=== PATIENT | female | born 1950 | race Caucasian/White ===

== ENCOUNTER 2018-09-04 07:09 | Observation (INO) | payer MEDICARE, OTHER ==
[~2018-09-04] VITALS: Ht 162.6 cm; Wt 91.4 kg
[2018-09-04 08:09] LABS: COLLECTION METHOD CLEAN CATCH
[2018-09-04 08:13] LABS: BASO % 0.4 % (0.0-2.0); EOS % 0.1 % (0-4.0); GRAN # 6.9 (1.4-6.5); GRAN % 73.2 % (42.2-75.2); HEMATOCRIT 39.1 % (37.0-47.0); HEMOGLOBIN 12.6 g/dl (12.5-16.0); LYMPH # 1.9 (1.2-3.4); LYMPH % 20.2 % (20.0-51.0); MEAN CELL VOLUME 81 fl (80.0-100.0); MEAN CORPUSCULAR HEMOGLOBIN 26 pg (27.0-31.0); MEAN CORPUSCULAR HGB CONC 32 g/dl (33.0-37.0); MONO # 0.6 (0.1-0.6); MONO % 5.9 % (1.7-9.3); PLATELET COUNT 266 K/mm3 (130-400); RED BLOOD COUNT 4.83 M/mm3 (4.10-5.30)
[2018-09-04 08:17] LABS: ARTERIAL BLD GAS O2 SATURATION 93.4 % (92-100); ARTERIAL BLD GAS TCO2 CT 26.3; ARTERIAL BLOOD GAS BASE EXCESS 1.3 (-2-2); ARTERIAL BLOOD GAS HCO3 25.2 meq/L (22-26); ARTERIAL BLOOD GAS PCO2 37.4 mmHg (35-45); ARTERIAL BLOOD GAS PO2 68.1 mmHg (80-100); ARTERIAL BLOOD GAS pH 7.45 (7.35-7.45)
[2018-09-04 08:19] LABS: MUCOUS Present /lpf; PH 6 (5-8); SQUAMOUS EPITHELIAL 0-2 /hpf; URINE APPEARANCE Clear; URINE BACTERIA None Seen /hpf; URINE BILIRUBIN Negative (NEGATIVE); URINE BLOOD Negative (NEGATIVE); URINE COLOR Yellow; URINE GLUCOSE 3+ (NEGATIVE); URINE KETONE 1+ (NEGATIVE); URINE LEUKOCYTE ESTERASE Negative (NEGATIVE); URINE NITRATE Negative (NEGATIVE); URINE PROTEIN(semi-quant) Negative (NEGATIVE); URINE RBC 0-2 /hpf; URINE UROBILINOGEN Negative (NEGATIVE)
[2018-09-04 08:23] LABS: ALBUMIN 4.3 gm/dL (3.5-5.0); BILIRUBIN,TOTAL 1.1 mg/dL (0.0-1.0); CALCIUM 9.3 mg/dL (8.4-10.2); CREATININE, serum 0.6 mg/dL (0.52-1.25); POTASSIUM 3.9 mmol/L (3.4-5.0); TOTAL PROTEIN 7.8 gm/dL (6.4-8.2)
--- NOTE | 2018-09-04 11:22 | NUR ---
Initial visit; Patient requested Middleware Administrator who offered comfort, encouragement and prayer while in Emergency Services Room.
[2018-09-04] MEDS ORDERED: GLUCOPHAGE1000 MG PO (11:46)
[2018-09-04] MEDS ORDERED: PRINIVIL40 MG PO (11:46)
[2018-09-04] MEDS ORDERED: PRILOSEC 20MG20 MG PO (11:47)
[2018-09-04] MEDS ORDERED: COREG 25MG25 MG/TAB PO (11:47)
[2018-09-04] MEDS ORDERED: LEVEMIR FLEX100 U/ML SQ (11:47)
[2018-09-04] MEDS ORDERED: GLUCOTROL 5M5 MG/TAB PO (11:49)
[2018-09-04] MEDS ORDERED: ASPIRIN 81M81 MG/TA2 PO (11:51)
[2018-09-04 12:00] VITALS: BP 163/80; PULSE 95; TEMP 98.6
[2018-09-04 12:22] LABS: GLUCOSE,CSF 118 mg/dL (40-70); TOTAL PROTEIN,CSF 61 mg/dL (15-45)
[2018-09-04 12:54] LABS: CSF APPEARANCE CLEAR; CSF COLOR COLORLESS; CSF MONONUCLEAR 100 % (70-100); CSF POLYMORPHONUCLEAR 0 % (0-6); CSF RBC 2 /mm3 (0-0)
[2018-09-04 12:55] LABS: CSF APPEARANCE CLEAR; CSF COLOR COLORLESS; CSF MONONUCLEAR 100 % (70-100); CSF POLYMORPHONUCLEAR 0 % (0-6); CSF RBC 2 /mm3 (0-0)
--- NOTE | 2018-09-04 13:30 | NUR ---
Pt arived to floor at this time via cart, assisted to slide over, will continue to monitor.
[2018-09-04 15:28] VITALS: BP 187/85; PULSE 100; TEMP 99.3
--- NOTE | 2018-09-04 18:26 | NUR ---
Pt doing well, has intermittent expressive aphasia but otherwise no deficits or departures from baseline. Family at bedside, IVF to LH. Denies needs, will give bedside shift report to nightshift nurse who will resume care.
[2018-09-04 19:06] VITALS: BP 138/63; PULSE 87; TEMP 98.1
--- NOTE | 2018-09-04 22:15 | NUR ---
Pt resting in bed watching TV, no C/O pain, shift assessment complete, left Pt call light in reach, bed in lowest position.
[2018-09-04 23:44] VITALS: BP 170/86; PULSE 85; TEMP 97.2
[2018-09-05 04:23] VITALS: BP 156/81; PULSE 89; TEMP 97
--- NOTE | 2018-09-05 04:57 | NUR ---
Pt slept well durin the night, she did use her CPAP overnight, VS have remained stable, PT is not scoring on the stroke scale as of this note.
--- NOTE | 2018-09-05 06:50 | NUR ---
awake and up and about in room independently, bedside shift report received from SHERRON Snyder
[2018-09-05 07:30] VITALS: BP 164/95; PULSE 77; TEMP 98.2
--- NOTE | 2018-09-05 07:30 | NUR ---
awake and looking at her phone, full assessment completed, see interventions for further info, informed her she needs to be NPO for CTA scan later, verbalizes understanding
--- NOTE | 2018-09-05 08:03 | NUR ---
speech therapist in to work with patient
--- NOTE | 2018-09-05 08:30 | NUR ---
to radiology per WC for CTA
--- NOTE | 2018-09-05 08:30 | NUR ---
moves about in room independnetly, IV fluid rate decreased to 60ml/hr, tech here and to radiology for CTA
--- NOTE | 2018-09-05 09:11 | NUR ---
ambulating in [place] with physical therapy
--- NOTE | 2018-09-05 10:50 | NUR ---
visiting with family, denies needs
[2018-09-05 11:12] VITALS: BP 168/89; PULSE 78; TEMP 98.6
--- NOTE | 2018-09-05 11:55 | NUR ---
sitting up in chair eating lunch, asking about going home and when Dr will be in, let her and her family know that the Dr will be making rounds that he is out now seeing other patients, will have EEG around 1PM
--- NOTE | 2018-09-05 12:20 | NUR ---
Dr Hillman and care team in to see lani
--- NOTE | 2018-09-05 13:17 | NUR ---
to sleep lab per for EEG
--- NOTE | 2018-09-05 14:29 | NUR ---
remains in sleep lab for EEG
--- NOTE | 2018-09-05 14:43 | NUR ---
returned from EEG per WC and into bed
--- NOTE | 2018-09-05 15:34 | NUR ---
SHERRI and NANETTEM met with patient to present BEC[employer] form. Patient signed and SW placed it on patient's chart. SW then spoke with patient about discharge planning. Patient lives independently at home alone but she has family and friend support near by. Patient's PCP is Dr. Plascencia and she obtains prescriptions from [facility]. Patient has a cane for ambulation but there is no other DME reported and she does not use home health services. Patient does not have a DPOA but she is interested in that. SHERRI provided form. Patient does not anticipate any needs upon discharge.
--- NOTE | 2018-09-05 15:45 | NUR ---
Dr Harmon in to see patient, informed this nurse she is OK for discharge and Rebeca DELVALLE notified
[2018-09-05] MEDS ORDERED: KEPPRA 500MG500 MG PO (16:32)
--- NOTE | 2018-09-05 16:59 | NUR ---
discharge instructions given to patient and her family, verbalizes understanding
--- NOTE | 2018-09-05 17:00 | NUR ---
discharged per WC
== END 2018-09-05 17:00 | disposition home or self-care (01) ==
LOC: COL.ER 07:09 → MEDICAL 10:21
PROVIDERS: Family Medicine; ADMIT Student in an Organized Health Care Education/Training Program
DX: R41.82 Altered mental status, unspecified (principal); R47.01 Aphasia; R56.9 Unspecified convulsions; I10 Essential (primary) hypertension; E11.65 Type 2 diabetes mellitus with hyperglycemia; Z79.4 Long term (current) use of insulin; G47.33 Obstructive sleep apnea (adult) (pediatric); E04.1 Nontoxic single thyroid nodule; Z79.899 Other long term (current) drug therapy; Z79.82 Long term (current) use of aspirin
CPT/HCPCS: OP; A4216; J0696; J1650; J1815; J3010; J7030; Q9967

== ENCOUNTER → 2018-10-03 | Outpatient (CLI) | payer MEDICARE, OTHER ==
[~2018-10-03] MED LIST: ALEVE 220MG220 MG PO; ASPIRIN 81M81 MG/TA2 PO; COREG 25MG25 MG/TAB PO; EDARBI80 MG PO; GLUCOPHAGE1000 MG PO; GLUCOTROL 5M5 MG/TAB PO; KEPPRA 500MG500 MG PO; LEVEMIR FLEX100 U/ML SQ; LEVEMIR100 U/ML SQ; LIPITOR 10MG10 MG PO; PRILOSEC 20MG20 MG PO; PRINIVIL40 MG PO
== END ==
LOC: MC.RAD 08-08 16:40
DX: Z12.31 Encounter for screening mammogram for malignant neoplasm of breast (principal)

== ENCOUNTER → 2020-02-04 | Outpatient (CLI) | payer MEDICARE, OTHER ==
[~2020-02-04] MED LIST changes: +FLOMAX 0.40.4 MG/CAP PO; +NORCO 325 MG-51 TAB PO; +NORVASC 10MG10 MG PO; +ZOFRAN 4MG T4 MG/TAB PO
== END ==
LOC: MC.RAD 11:38
DX: Z12.31 Encounter for screening mammogram for malignant neoplasm of breast (principal)

== ENCOUNTER 2020-02-24 10:37 | Emergency (ER) | payer MEDICARE, OTHER ==
[~2020-02-24] VITALS: Ht 162.6 cm; Wt 90.9 kg
[2020-02-24 10:44] VITALS: TEMP 98.1
[2020-02-24] MEDS ORDERED: PERCOCET 325 MG1 TA2 PO (12:51)
[2020-02-24 13:02] VITALS: BP 135/82; PULSE 88
== END 2020-02-24 13:00 | disposition home or self-care (01) ==
LOC: COL.ER 10:37
DX: S42.411A Displaced simple supracondylar fracture without intercondylar fracture of right humerus, initial encounter for closed fracture (principal); E11.9 Type 2 diabetes mellitus without complications; I10 Essential (primary) hypertension; K21.9 Gastro-esophageal reflux disease without esophagitis; Z79.4 Long term (current) use of insulin; Z79.82 Long term (current) use of aspirin; Z88.1 Allergy status to other antibiotic agents; W01.0XXA Fall on same level from slipping, tripping and stumbling without subsequent striking against object, initial encounter; Y92.009 Unspecified place in unspecified non-institutional (private) residence as the place of occurrence of the external cause

== ENCOUNTER → 2021-06-09 | Outpatient (CLI) | payer MEDICARE, OTHER ==
[~2021-06-09] MED LIST changes: +PERCOCET 325 MG1 TA2 PO
== END ==
LOC: MC.RAD 10:45
DX: Z12.31 Encounter for screening mammogram for malignant neoplasm of breast (principal); N64.89 Other specified disorders of breast

== ENCOUNTER → 2021-06-25 | Outpatient (CLI) | payer MEDICARE, OTHER | LOC: MC.RAD 12:51 | DX: N64.89 Other specified disorders of breast (principal) ==

== ENCOUNTER → 2022-02-02 | Outpatient (CLI) | payer MEDICARE | LOC: COL.RAD 09:10 | DX: E04.2 Nontoxic multinodular goiter (principal) ==

== ENCOUNTER → 2022-02-04 | Outpatient (CLI) | payer MEDICARE | LOC: MC.RAD 10:55 | DX: N63.10 Unspecified lump in the right breast, unspecified quadrant (principal) ==

== ENCOUNTER → 2024-06-20 | Outpatient (CLI) | payer MEDICARE | LOC: MC.RAD 13:48 | DX: Z12.31 Encounter for screening mammogram for malignant neoplasm of breast (principal) ==